=== PATIENT | male | born 2000 | race Hispanic/Latino ===

== ENCOUNTER 2020-07-08 21:57 | Emergency (ER) | payer OTHER, SELFPAY ==
[2020-07-08 22:06] VITALS: BP 154/87; PULSE 82; RESP 18; TEMP 36.9; O2SAT 99
--- NOTE | 2020-07-08 22:25 | DI.RAD.S_ITS ---
PROCEDURE: XR TIBIA FIBULA RT 2V INDICATIONS: pain in B/L LE after trampoline injury TECHNIQUE: 2 views of the tibia and fibula were acquired. COMPARISON: None. FINDINGS: Bones: No fractures or dislocations. No suspicious bony lesions. Soft tissues: No suspicious soft tissue calcifications or masses. IMPRESSION: No acute radiographic findings. If pain persists, followup imaging in 5-7 days is recommended to exclude occult fracture. Dictated by: Ela Vale M.D. on 07/09/2020 at 7:15 Approved by: Ela Vale M.D. on 07/09/2020 at 7:15
--- NOTE | 2020-07-08 22:25 | DI.RAD.S_ITS ---
PROCEDURE: XR TIBIA FUBULA RT 2V INDICATIONS: pain in B/L LE after trampoline injury TECHNIQUE: 2 views of the tibia and fibula were acquired. COMPARISON: None. FINDINGS: Bones: No fractures or dislocations. A probable small bone island is present within the proximal tibial metadiaphysis. Soft tissues: No suspicious soft tissue calcifications or masses. IMPRESSION: No acute radiographic findings. Probable small bone island within the tibial metadiaphysis. Consider 3 month follow-up to ensure stability of this finding. Alternatively, if the patient endorses atraumatic pain in this region, further characterization with MR could be used. Dictated by: Ela Vale M.D. on 07/09/2020 at 7:16 Approved by: Ela Vale M.D. on 07/09/2020 at 7:16
[2020-07-08 22:50] LABS: Add Manual Diff / Slide Review NO; Basophils Absolute Auto 0 /uL (0-100); Basophils Percent Auto 0.6 % (0-2); Eosinophils Absolute Auto 400 /uL (0-450); Eosinophils Percent Auto 4.9 % (2-4); Hematocrit 43.4 % (41-53); Hemoglobin 15.3 g/dL (13.5-17.5); Lymphocytes Absolute Auto 2200 /uL (1100-4500); Lymphocytes Percent Auto 30.2 % (25-40); Mean Corpuscular HGB Conc 35.2 % (30-36); Mean Corpuscular Hemoglobin 30.2 PG (26-34); Mean Corpuscular Volume 85.8 fL (80-100); Monocytes Absolute Auto 400 /uL (0-900); Neutrophils Absolute Auto 4300 /uL (1500-7000); Neutrophils Percent Auto 59.3 % (50-75); Platelet Count 221 X10^3/uL (150-400); Red Blood Cell Count 5.06 X10^6/uL (4.5-5.9); Red Cell Distribution Width 13.4 % (11.6-14.8); White Blood Cell Count 7.2 X10^3/uL (4.5-11.0)
[2020-07-08 23:00] LABS: BUN Creatinine Ratio 21.2 (6-22); Blood Urea Nitrogen 18 mg/dL (9-20); Calcium 9.6 mg/dL (8.4-10.2); Carbon Dioxide 26 mmol/L (22-32); Chloride 101 mmol/L (98-107); Estimated Glomerular Filt Rate > 60.0 mL/min (>60); Glucose 102 mg/dL (70-100); HEMOLYSIS < 15 (0-50); Potassium 3.8 mmol/L (3.4-5.1); Sodium 136 mmol/L (137-145)
--- NOTE | 2020-07-08 23:16 | ED.EXTPRO ---
HPI - Extremity Problem General Chief complaint: Extremity Problem,Nontraumatic Stated complaint: pain in legs Time Seen by Provider: 07/08/20 22:00 Mode of arrival: Ambulatory Limitations: no limitations History of Present Illness HPI Narrative: 19-year-old male nonsmoker with noncontributory medical history presents with a chief complaint of bilateral lower extremity dunn pain for about the past year. He states his pain started when he was trying to do a flip on a trampoline when he landed on his shins. He states that it resolved after about a week but over the past year his shins really her when he runs hard surfaces. He denies any other injury. He denies any calf pain. He denies any change in diet or recent nausea, vomiting or diarrhea. MD Complaint: extremity pain Onset (ago): year(s) Pain Consistency: intermittent Location: left, right and lower extremity Quality: aching Radiation: none Relieving factors: nothing Exacerbating factors: nothing Review of Systems Constitutional Constitutional: Denies chills, Denies fatigue, Denies fever(s), Denies frequent falls, Denies lethargy and Denies weakness Eyes Eyes: Denies change in vision, Denies eye discharge, Denies irritation and Denies loss of vision ENT Ears, Nose, Mouth, and Throat: Denies change in voice, Denies dizziness, Denies neck pain, Denies sore throat and Denies throat swelling Cardiovascular Cardiovascular: Denies chest pain, Denies irregular heart rhythm, Denies lightheadedness, Denies palpitations, Denies dyspnea, Denies dyspnea on exertion and Denies orthopnea Respiratory Respiratory: Denies cough, Denies dyspnea, Denies dyspnea on exertion and Denies wheezing Gastrointestinal Gastrointestinal: Denies abdominal pain, Denies change in bowel habits, Denies diarrhea, Denies nausea and Denies vomiting Musculoskeletal Musculoskeletal: Denies neck pain and Denies numbness Integumentary/Breasts Skin/Breast: Denies pruritus, Denies erythema, Denies rash and Denies wounds Neurologic Neurologic: Denies behavioral changes, Denies confusion, Denies dizziness, Denies frequent falls, Denies loss of vision, Denies numbness and Denies weakness Psychiatric Psychiatric: Denies anxiety, Denies behavioral changes, Denies confusion, Denies depression, Denies homicidal ideation and Denies suicidal ideation Endocrine Endocrine: Denies fatigue, Denies flushing and Denies palpitations Hematologic/Lymphatic Hematologic/Lymphatic: Denies easy bruising Allergic/Immunologic Allergic/Immunologic: Denies urticaria, Denies throat swelling and Denies wheezing Patient History Social History Smoking Status: Never smoker Smoking Status: Never smoker alcohol intake frequency: a few times a month Substance Use Type: does not use Exam Narrative Exam Narrative: GENERAL: [19] year old patient appears stated age. Well-nourished, well-developed patient, in mild distress. HEAD: Atraumatic. Normocephalic. EYES: Pupils equal round and reactive. Extraocular motions intact. No scleral icterus. No injection or drainage. ENT: Nose without bleeding, purulent drainage. Throat without erythema, tonsillar hypertrophy or exudate. Airway patent. NECK: Trachea midline. Non tender CARDIOVASCULAR: Regular rate and rhythm without murmurs, gallops, or rubs. RESPIRATORY: Clear to auscultation. Breath sounds equal bilaterally. No wheezes, rales, or rhonchi. GASTROINTESTINAL: Abdomen soft, non-tender, nondistended. EXTREMITIES: No edema or joint tenderness. BACK: Nontender without deformity or crepitance. No flank tenderness. NEURO: AOx3. SKIN: No rash or erythema of visible areas Initial Vital Signs Initial Vital Signs: Vital Signs Temperature 98.4 F 07/08/20 22:06 Pulse Rate 82 07/08/20 22:06 Respiratory Rate 18 07/08/20 22:06 Blood Pressure 154/87 H 07/08/20 22:06 Pulse Oximetry 99 07/08/20 22:06 Course Orders Ordered: ED Orders 07/08/20 22:25 XR tibia fibula LT 2V Stat XR tibia fibula RT 2V Stat 07/08/20 22:39 Basic Metabolic Panel Stat Complete Blood Count AUTO DIFF Stat Vital Signs Vital signs: Vital Signs - 8 hr 07/08/20 22:06 Temperature 98.4 F Pulse Rate 82 Respiratory Rate 18 Blood Pressure 154/87 H Pulse Oximetry 99 MDM - Extremity (Nontraumatic) Lab Data Result diagrams: 07/08/20 22:39 07/08/20 22:39 Labs: Lab Results 07/08/20 07/08/20 Range/Units 22:39 22:39 WBC 7.2 (4.5-11.0) X10^3/uL RBC 5.06 (4.5-5.9) X10^6/uL Hgb 15.3 (13.5-17.5) g/dL Hct 43.4 (41-53) % MCV 85.8 (80-100) fL MCH 30.2 (26-34) PG MCHC 35.2 (30-36) % RDW 13.4 (11.6-14.8) % Plt Count 221 (150-400) X10^3/uL Neut % (Auto) 59.3 (50-75) % Lymph % (Auto) 30.2 (25-40) % Power % (Auto) 5.0 (3-14) % Eos % (Auto) 4.9 H (2-4) % Baso % (Auto) 0.6 (0-2) % Neut # (Auto) 4300 (9899-8173) /uL Lymph # (Auto) 2200 (4502-2884) /uL Power # (Auto) 400 (0-900) /uL Eos # (Auto) 400 (0-450) /uL Baso # (Auto) 0 (0-100) /uL Sodium 136 L (137-145) mmol/L Potassium 3.8 (3.4-5.1) mmol/L Chloride 101 (98-107) mmol/L Carbon Dioxide 26 (22-32) mmol/L BUN 18 (9-20) mg/dL Creatinine 0.85 (0.66-1.25) mg/dL Estimated GFR > 60.0 (>60) mL/min BUN/Creatinine Ratio 21.2 (6-22) Glucose 102 H (70-100) mg/dL Calcium 9.6 (8.4-10.2) mg/dL [facility] Narrative Medical decision making narrative: Multiple etiologies for patient's symptoms considered including: [She splints versus electrolyte abnormality versus other] Patient's symptoms improved over duration of stay with above-stated therapies. Findings and discharge diagnosis discussed with patient/family followed by verbalization of understanding Return precautions discussed with patient/family whom verbalize understanding. Discharge Plan Departure Patient Disposition: Home Clinical Impression: Chronic lower limb pain Qualifiers: Laterality: bilateral Qualified Code(s): M79.604 - Pain in right leg Discharge Date/Time: 07/08/20 23:40 Instructions: DI for Leg Pain Activity Restrictions/Additional Instructions: *You have been diagnosed with [chronic bilateral lower extremity pain. Labs and x-rays are very reassuring] *What to do: *Take medications as directed: Tylenol or Motrin for pain *Follow up with your primary care provider in 2-3 days, call for an appointment. Let them know you were seen in the Emergency Department and that we ask that you be seen in follow up *Return to ER if you should have any new, worsening or concerning symptoms Referrals: [facility] Resources [Outside]
[2020-07-08 23:39] VITALS: BP 149/84; PULSE 78; RESP 18; O2SAT 99
== END 2020-07-08 23:40 | disposition home or self-care (01) ==
PROVIDERS: Emergency Provider Emergency Medicine
DX: M79.604 Pain in right leg (principal); M79.605 Pain in left leg
CPT/HCPCS: 36415; 73590; 80048; 85025; 99283; 99284